=== PATIENT | female | born 1990 | race Hispanic/Latino ===

== ENCOUNTER 2021-02-27 13:04 | Inpatient (IN) | payer BC ==
[~2021-02-27] VITALS: Ht 166.4 cm; Wt 85.3 kg
[2021-02-27] MEDS ORDERED: OXYTOCIN-LR 20 UNITS/1000 ML 1,000 ML IV SCH ×2 (13:30→15:00)
[2021-02-27] MEDS ORDERED: NALOXONE HCL 0.4 MG/1 ML ML IV PRN (13:30)
[2021-02-27] MEDS ORDERED: LACTATED RINGERS 1000ML 1,000 ML IV PRN (13:30)
[2021-02-27] MEDS ORDERED: EPHEDRINE SULFATE 50 MG/ML AMPULE IVP PRN (13:30)
[2021-02-27] MEDS ORDERED: LACTATED RINGERS 500 ML 500 ML IV PRN (13:30)
[2021-02-27 13:36] LABS: HEMATOCRIT 37.7 % (36-48); MEAN CORPUSCULAR HEMOGLOBIN 31.5 pg (27.0-33.0); MEAN CORPUSCULAR HGB CONC 33.7 g/dL (32.0-36.0); MEAN CORPUSCULAR VOLUME 93.5 fL (79-99); RED BLOOD CELL COUNT(AUTO) 4.03 MIL/uL (4.00-5.50); RED CELL DISTRIBUTION WIDTH 12.6 % (11.0-15.5); WHITE BLOOD COUNT (AUTO) 8.5 K/uL (4.8-10.8)
[2021-02-27 13:40] LABS: APPEARANCE,URINE Cloudy (CLEAR); BILIRUBIN,URINE Negative (NEGATIVE); COLOR,URINE Yellow (YELLOW); GLUCOSE, URINE (UA) Negative (NEGATIVE); KETONES,URINE Negative (NEGATIVE); LEUKOCYTE ESTERASE ,URINE Trace (NEGATIVE); NITRATE,URINE Negative (NEGATIVE); OCCULT BLOOD,URINE Trace (NEGATIVE); PH,URINE 6.5 (5.0-8.0); PROTEIN,URINE Negative (NEGATIVE); UROBILINOGEN,URINE 0.2 mg/dL (0.2-1.0)
[2021-02-27 13:46] LABS: BACTERIA,URINE Rare /HPF (None Seen); RBC,URINE 0-1 /HPF (0-1); SQUAMOUS EPITHELIAL CELL,UR Few /HPF (0-2); WBC,URINE 0-1 /HPF (0-1)
[2021-02-27] MEDS ORDERED: LACTATED RINGERS 1000ML 1,000 ML IV ONE (13:57)
[2021-02-27] MEDS ORDERED: MEASLES/MUMPS/RUBELLA VACCINE, LIVE 0.5 ML/VIAL SQ PRN (15:00)
[2021-02-27] MEDS ORDERED: LANOLIN 30GM OINTMENT TP PRN (15:00)
[2021-02-27] MEDS ORDERED: BENZOCAINE/LANOLIN/ALOE VERA 60 ML AEROSOL TP PRN (15:00)
[2021-02-27] MEDS ORDERED: ACETAMINOPHEN WITH CODEINE 1 TAB TAB PO PRN (15:00)
[2021-02-27] MEDS ORDERED: ACETAMINOPHEN 325 MG TAB PO PRN (15:00)
[2021-02-27] MEDS ORDERED: WITCH HAZEL 1 PAD TP PRN (15:00)
[2021-02-27] MEDS ORDERED: DIPH,PERTUSS(ACELL),TET VAC/PF 0.5 ML VIAL IM PRN (15:00)
[2021-02-27] MEDS: IBUPROFEN 600 MG TABLET PO PRN (17:42)
[2021-02-27] MEDS ORDERED: FLU VACC QS2021-22(6MOS UP)/PF 60 MCG/0.5 ML ML IM ONE (20:00)
[2021-02-27 20:08] VITALS: BP 115/74
[2021-02-27] MEDS ORDERED: PREN-61 PO (20:10)
[2021-02-27] MEDS: DOCUSATE SODIUM 100 MG CAP PO SCH (21:43)
[2021-02-27 23:21] VITALS: BP 102/55
[2021-02-28 03:10] VITALS: BP 106/73
[2021-02-28 06:46] LABS: HEMATOCRIT 40.7 % (36-48); MEAN CORPUSCULAR HEMOGLOBIN 31.4 pg (27.0-33.0); MEAN CORPUSCULAR HGB CONC 32.7 g/dL (32.0-36.0); RED BLOOD CELL COUNT(AUTO) 4.24 MIL/uL (4.00-5.50); RED CELL DISTRIBUTION WIDTH 12.7 % (11.0-15.5); WHITE BLOOD COUNT (AUTO) 8.8 K/uL (4.8-10.8)
[2021-02-28 07:15] LABS: HEPATITIS Bs ANTIGEN SCREEN P Negative (Negative)
[2021-02-28 07:18] VITALS: BP 111/72
[2021-02-28] MEDS: DOCUSATE SODIUM 100 MG CAP PO SCH (08:50)
[2021-02-28] MEDS: IBUPROFEN 600 MG TABLET PO PRN (08:57)
[2021-02-28 09:08] LABS: RAPID PLASMA REAGIN NONREACTIVE (NONREACTIVE)
[2021-02-28 11:34] VITALS: BP 107/70
[2021-02-28] MEDS ORDERED: IBUP-2077 PO (15:23)
== END 2021-02-28 16:05 | disposition home or self-care (01) | DRG 807 ==
LOC: LDH 13:04 → WSH 17:07
PROVIDERS: ADMIT Obstetrics & Gynecology; ATTEND Obstetrics & Gynecology
PROC: 10E0XZZ Delivery of Products of Conception, External Approach (ICD-10-PCS; principal; 2021-02-27)
PROC: 10907ZC Drainage of Amniotic Fluid, Therapeutic from Products of Conception, Via Natural or Artificial Opening (ICD-10-PCS; 2021-02-27)
PROC: 3E02340 Introduction of Influenza Vaccine into Muscle, Percutaneous Approach (ICD-10-PCS; 2021-02-27)
PROC: 3E0234Z Introduction of Serum, Toxoid and Vaccine into Muscle, Percutaneous Approach (ICD-10-PCS; 2021-02-27)
DX: O80 Encounter for full-term uncomplicated delivery (principal); Z37.0 Single live birth; Z3A.38 38 weeks gestation of pregnancy; Z23 Encounter for immunization; Z88.2 Allergy status to sulfonamides; Z88.8 Allergy status to other drugs, medicaments and biological substances
CPT/HCPCS: 36415; 81001; 85027; 86592; 86701; 86850; 86900; 86901; 87340; 87390; 90715; A4351; G0378; J2590; J7120; Q2035